=== PATIENT | male | born 1990 | race Caucasian/White ===

== ENCOUNTER 2016-08-11 06:13 | Day surgery (SDC) | payer OTHER ==
[2016-08-08 13:01] VITALS: BMI 23.2
[2016-08-11] VITALS (47 sets, daily range): BP systolic 118–146; BP diastolic 57–79; PULSE 62–96; RESP 9–20; Ht 188 cm; Wt 80.3 kg
[~2016-08-11] VITALS: Ht 188 cm; Wt 80.3 kg
[2016-08-11] MEDS ORDERED: FENTAnyl 50 MCG/ML VIAL ONE ×3 (06:49→07:39)
[2016-08-11] MEDS ORDERED: MIDAZOLAM 1 MG/ML 2 ML INJ ONE (06:49)
[2016-08-11] MEDS ORDERED: ROPIVACAINE 0.2% 20 ML VIAL ONE (06:49)
[2016-08-11] MEDS ORDERED: ROPIVACAINE 0.5 % 30 ML VIAL ONE ×2 (06:50→06:54)
[2016-08-11] MEDS ORDERED: POVIDONE IODINE 10% 28.4 GM OINT ONE (06:54)
[2016-08-11] MEDS ORDERED: POLYMYXIN/BACITRACIN 1L IRRIG ONE (06:54)
[2016-08-11] MEDS ORDERED: CEFAZOLIN 1 GM INJ ONE (07:00)
[2016-08-11] MEDS ORDERED: GLYCOPYRROLATE 1 MG INJ ONE (07:11)
[2016-08-11] MEDS ORDERED: NEOSTIGMINE 3 MG/3 ML SYRINGE ONE (07:11)
[2016-08-11] MEDS ORDERED: ROCURONIUM 50 MG INJ ONE (07:11)
[2016-08-11] MEDS ORDERED: PROPOFOL 100 ML ONE (07:11)
[2016-08-11] MEDS ORDERED: ONDANSETRON 4 MG INJ ONE (07:13)
[2016-08-11] MEDS ORDERED: DEXAMETHASONE 4 MG/ML 1 ML INJ ONE (07:13)
[2016-08-11] MEDS ORDERED: ALBU2.5V3 NEB (07:14)
[2016-08-11] MEDS ORDERED: IBUP-1542 PO (07:15)
--- NOTE | 2016-08-11 07:25 | HPN ---
Date/Time of Note Date/Time of Note DATE: 08/11/16 TIME: 07:25 Interval H&P Admission Note Pt. seen H&P reviewed: No system changes MARIELA PETERS MD Aug 11, 2016 07:25
[2016-08-11] MEDS ORDERED: DIPHENHYDRAMINE 50 MG INJ IV PRN (08:30)
[2016-08-11] MEDS ORDERED: EPHEDrine SULFATE 50 MG/5 ML SYG IV PRN (08:30)
[2016-08-11] MEDS ORDERED: KETOROLAC 30 MG INJ IV STA (11:48)
[2016-08-11] MEDS ORDERED: KETOROLAC 30 MG INJ ONE (11:48)
[2016-08-11] MEDS ORDERED: BISACODYL 10 MG SUPP PR PRN (12:00)
[2016-08-11] MEDS ORDERED: MEPERIDINE 25 MG INJ IV PRN (12:00)
[2016-08-11] MEDS ORDERED: FENTAnyl 50 MCG/ML VIAL IV PRN ×3 (12:00)
[2016-08-11] MEDS ORDERED: HYDROmorphONE (0.2 MG/ML) 10ML SYG IV PRN ×3 (12:00)
[2016-08-11] MEDS ORDERED: hydrALAzine 20 MG INJ IV PRN (12:00)
[2016-08-11] MEDS ORDERED: MIDAZOLAM 1 MG/ML 2 ML INJ IV PRN (12:00)
[2016-08-11] MEDS ORDERED: LABETALOL HCL 20MG INJ IV PRN (12:00)
[2016-08-11] MEDS ORDERED: TRIMETHOBENZAMIDE 100 MG/ML VIAL IM PRN (12:00)
[2016-08-11] MEDS ORDERED: CEFAZOLIN 1 GM INJ IV SCH (12:00)
[2016-08-11] MEDS ORDERED: ONDANSETRON 4 MG INJ IV PRN (12:00)
[2016-08-11] MEDS: HYDROmorphONE 0.2 MG/ML PCA IV SCH ×2 (12:08→19:44)
--- NOTE | 2016-08-11 13:08 | OPR ---
DATE OF OPERATION: 08/11/2016 PREOPERATIVE DIAGNOSES: 1. 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 2. Planovalgus hindfoot. POSTOPERATIVE DIAGNOSES: 1. 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 2. Planovalgus hindfoot. OPERATION PERFORMED: 1. Medial sliding calcaneal osteotomy with screw fixation. 2. Left posterior tibial tenosynovectomy. 3. Excision accessory navicular and prominent navicular. 4. Advancement posterior tibial tendon into the remaining navicular. 5. Use of fluoroscopy to verify position and alignment of the osteotomy, screws and suture anchor a nd excision of the naviculars. 6. Short-leg cast. SURGEON: Mariela Peters MD LAWN CARETAKER: Tim Mccracken MD ANESTHESIA: General with popliteal block. TOURNIQUET TIME: 1. 43 minutes. 2. 76 minutes. DESCRIPTION OF PROCEDURE: The patient taken to the operating room and placed in supine position. S atisfactory popliteal block was given. Satisfactory general anesthesia was administered. The patie nt was rolled in the right lateral decubitus position, secured with beanbag, kidney rest, axillary r oll, arms were carefully padded. As mentioned, 1 gram Ancef given intravenously. The left foot was prepped and draped in the usual manner. Tourniquet was inflated to 250 mmHg. A 45 degree oblique incision was made using the guide pin and the fluoroscope centered exactly where we wanted it over t he calcaneus. Dissection carried down to subcutaneous tissue. The osteotomy was then marked on the calcaneus under fluoroscopy. Using an oscillating saw, osteotomy was performed to the cortex and t he cortex were carefully released with an osteotome. Laminar liquor bridge operator helper was inserted. The heel was s hifted about 8 mm, fixated with a 4.5 and 7.3 AO cannulated screws. Repeatedly throughout the fixat ion process we checked in AP and lateral planes to make sure the position and alignment were appropr iate and they were. Final fluoroscopic views revealed excellent shifting medially of the osteotomy with the screws in place and well centered. Remaining bony prominence laterally was smoothed down w ith a power rasp. Wounds were irrigated with antibiotic solution. Tourniquet was released, bleeder s were coagulated. Subcutaneous tissue was closed with 3-0 undyed Vicryl and skin with 4-0 black ny shania. Sterile dressing was applied. All drapes were removed. The patient was taken off the beanbag and placed in supine position. The left leg was then reprepped and draped. All new instruments were used. Incision was made from just above the tip of the medial malleolus towards the navicular tuberosity which was quite prominen t and distal to the naviculocuneiform joint. Dissection carried down to subcutaneous tissue. Bleed ers were coagulated as encountered. Posterior tibial tendon sheath was opened. There was some teno synovitis which was debrided. There were no obvious tears in the posterior tibial tendon. The post erior tibial tendon and its attachments were peeled off the prominent navicular superiorly and refle cted inferiorly. Accessory navicular was excised sharply. Oscillating saw was used to remove the r emaining navicular prominence. Excellent resection was noted on the fluoroscope. Wounds were irrig ated with antibiotic solution. Super Revo triple loaded was inserted under direct vision with the fl uoroscope. Good position and alignment was noted with the suture anchor. Two sutures were left in place. One was removed a #2 HiFi. They were then weaved through the posterior tibial tendon on one side only, so that they would slide down to the post on the other side. With the foot plantar flex ed and inverted each suture was then tied. Excellent approximation to the navicular was done. Ana ining attachments to the navicular was secured with 0 FiberWire dorsally. The posterior tibial tendo n sheath was then closed with a running 2-0 PDS. Tourniquet was released, bleeders were coagulated, wound was irrigated with antibiotic solution. The wounds were closed with 3-0 undyed Vicryl and 4- 0 black nylon. Compression dressing applied as well as a saphenous nerve block with 0.5% ropivacain e. Compression dressing and short leg cast were applied with the foot maximally plantar flexed and inverted. At the end of the procedure sponge and needle count was correct. Patient tolerated proce dure well and the cast was split in the recovery room. CLINICAL THERAPIST ORTHOPEDIC SURGEON: During the procedure, an restaurant assistant orthopedic surgeon was used at my request. The restaurant assistant inserted the screws while I held the osteotomy reduced. The restaurant assistant also helped so the tendon while I held the foot in position inverted and plantar flexed without skilled o rthopedic surgeon assisting me, this could not have been done; therefore, should be compensated appr opriately. Dictated By: MARIELA PETERS MD RF/NTS Conf#: [id number] DID#: [id number] CC: TIM MCCRACKEN MD;*EndCC*
--- NOTE | 2016-08-11 13:11 | RADRPT ---
PROCEDURE: X-ray fluoroscopy guidance CLINICAL INDICATION: Pain TECHNIQUE: Fluoroscopic guidance was utilized for excision of accessory navicular, osteotomy. COMPARISON: None available FINDINGS: Fluoroscopic guidance was provided. 0.4 minutes of fluoroscopy time was utilized for the procedure. 6 images obtained during the procedure in progress. Cumulative dose is 0.820 mGy and 0.0242 mGym2 . IMPRESSION: 1. X-ray fluoroscopic guidance, as above. RPTAT: QQ .Roland Ray MD, MD Date Time Electronically viewed and signed by .Roland Ray MD, on 08/11/2016 13:11 .R/
[2016-08-11] MEDS ORDERED: DIPHENHYDRAMINE 25 MG CAP PO PRN (16:00)
[2016-08-11] MEDS: ONDANSETRON 4 MG INJ IV PRN (16:18)
[2016-08-11] MEDS: CEFAZOLIN 1 GM/50 ML (PMX) 50 ML IVPB SCH ×2 (16:19→23:30)
[2016-08-11] MEDS: SOD CHLORIDE 0.9% 1,000 ML IV SCH ×2 (16:42→22:40)
[2016-08-11] MEDS: SENNA/DOCUSATE NA (8.6MG/50MG) TAB PO SCH (21:00)
[2016-08-12 00:26] VITALS: BP 123/56; PULSE 90; RESP 18
[2016-08-12] MEDS: morphine 10 MG INJ IV PRN ×3 (04:23→15:27)
[2016-08-12] MEDS: HYDROmorphONE 0.2 MG/ML PCA IV SCH ×3 (05:58→22:55)
[2016-08-12] MEDS: OXYCODONE/ACETAMINOPHEN (5/325) TAB PO PRN ×4 (07:00→21:50)
--- NOTE | 2016-08-12 07:03 | PN ---
Date/Time of Note Date/Time of Note DATE: 08/12/16 TIME: 06:59 Assessment/Plan VTE Prophylaxis VTE Prophylaxis Intervention: ambulation, SCD's, other Lines/Catheters IV Catheter Type (from Nrsg): Peripheral IV Central line still needed: No Urinary Cath still in place: No Assessment/Plan Assessment/Plan A/P: POD#1 s/p LLE PTT advancement, calc osteotomy - Cont pain control. Encourage PO meds - PT today, NWB LLE - Xarelto, ambulation, SCD's for DVT ppx - no huertas - 24 hr abx - OK for discharge today if PT clears patient Subjective 24 Hr Interval Summary Free Text/Dictation Doing well, had pain at 4am when block wore off but meds are helping. Exam/Review of Systems Vital Signs Vitals Vital Signs Date Time Temp Pulse Resp B/P Pulse Ox O2 Delivery O2 Flow Rate FiO2 08/12/16 05:19 18 08/12/16 00:26 98.0 90 123/56 98 Room Air 08/11/16 14:51 2.0 Intake and Output 08/11/16 08/11/16 08/12/16 14:59 22:59 06:59 Intake Total 2100 ml 200 ml 2000 ml Output Total 25 ml 550 ml 1400 ml Balance 2075 ml -350 ml 600 ml Exam LLE: BCR toes. sens intact dorsal/plantar toes. DF/PF. cast intact, elevated on ramp. Medications Medications Current Medications Senna/Docusate Sodium (Senokot-S) 1 tab BID PO ; Start 08/11/16 at 21:00 Magnesium Hydroxide (Milk Of Mag) 30 ml HS PO ; Start 08/13/16 at 21:00 Bisacodyl 10 mg 10 mg DAILY PRN [place] CONSTIPATION; Start 08/11/16 at 12:00 Sodium Chloride (NS) 1,000 ml @ 100 mls/hr Q10H IV Last administered on 22:40; Admin Dose 100 MLS/HR; Start 08/11/16 at 11:42 Oxycodone/ Acetaminophen (Percocet (5/ 325)) 2 tab Q4H PRN PO PAIN; Start at 16:00 Morphine Sulfate (morphine) 5 mg Q4H PRN IV PAIN LEVEL 7-10 Last administered on 08/12/16 04:23; Admin Dose 5 MG; Start 08/11/16 at 16:00 Ondansetron HCl (Zofran Inj) 4 mg Q4H PRN IV NAUSEA AND/OR VOMITING Last administered on 08/11/16 16:18; Admin Dose 4 MG; Start 08/11/16 at 16:00 Diphenhydramine HCl (Benadryl) 25 mg Q4H PRN PO ITCHING; Start 08/11/16 at 16:00 Hydromorphone HCl 0.2 mg 0.2 mg Q4PCA IV Last administered on 08/12/16 05:58; Admin Dose 6 MG; Start 08/11/16 at 12:00 Cefazolin Sodium (Ancef 1 Gm/50 ml (Pmx)) 50 ml @ 100 mls/hr Q8H IVPB Last administered on 08/11/16 23:30; Admin Dose 100 MLS/HR; Start 08/11/16 at 16:00; Stop 08/13/16 at 08:29 MARIELA PETERS MD Aug 12, 2016 07:03
[2016-08-12] MEDS: SOD CHLORIDE 0.9% 1,000 ML IV SCH ×2 (07:42→17:42)
[2016-08-12] MEDS: CEFAZOLIN 1 GM/50 ML (PMX) 50 ML IVPB SCH ×2 (08:27→15:27)
[2016-08-12] MEDS: SENNA/DOCUSATE NA (8.6MG/50MG) TAB PO SCH ×2 (08:27→20:29)
--- NOTE | 2016-08-12 09:25 | RADRPT ---
PROCEDURE: X-ray fluoroscopy guidance CLINICAL INDICATION: Pain TECHNIQUE: Fluoroscopic guidance was utilized for left foot excision of accessory navicular, osteo keyana. COMPARISON: None available FINDINGS: Fluoroscopic guidance was provided. 0.1 minutes of fluoroscopy time was utilized for the procedure. 3 images obtained during the procedure in progress. Cumulative dose is 0.186 mGy and 0.22850 mGym 2. IMPRESSION: 1. X-ray fluoroscopic guidance, as above. RPTAT: QQ .Roland Ray MD, MD Date Time Electronically viewed and signed by .Roland Ray MD, on 08/12/2016 09:24 .R/
[2016-08-12] MEDS ORDERED: RIVAROXABAN 10 MG TABLET PO SCH (17:55)
[2016-08-12 20:16] VITALS: BP 128/68; RESP 20
[2016-08-13] MEDS: CEFAZOLIN 1 GM/50 ML (PMX) 50 ML IVPB SCH ×2 (00:08→07:42)
[2016-08-13] MEDS: SOD CHLORIDE 0.9% 1,000 ML IV SCH ×2 (03:42→12:58)
[2016-08-13] MEDS: HYDROmorphONE 0.2 MG/ML PCA IV SCH (04:03)
[2016-08-13] MEDS: OXYCODONE/ACETAMINOPHEN (5/325) TAB PO PRN ×3 (06:38→14:50)
[2016-08-13] MEDS ORDERED: morphine 10 MG INJ IV PRN (06:40)
--- NOTE | 2016-08-13 06:44 | PN ---
Date/Time of Note Date/Time of Note DATE: 08/13/16 TIME: 06:42 Assessment/Plan VTE Prophylaxis VTE Prophylaxis Intervention: ambulation, SCD's, other Lines/Catheters IV Catheter Type (from Nrsg): Peripheral IV Urinary Cath still in place: No Assessment/Plan Assessment/Plan POD#2 s/p L calc osteotomy, PTT advancement - cont pain control. encourage PO. d/c RANGER AIDE, q2h MS for breakthrough -DVT ppx - PT, NWB LLE - D/c home today - f/u as scheduled 1-[address] Jon Subjective 24 Hr Interval Summary Free Text/Dictation Doing better, pain controlled, slept o/n, worked well with PT Exam/Review of Systems Vital Signs Vitals Vital Signs Date Time Temp Pulse Resp B/P Pulse Ox O2 Delivery O2 Flow Rate FiO2 08/13/16 05:00 18 08/12/16 20:16 98.3 74 128/68 97 08/12/16 00:26 Room Air 08/11/16 14:51 2.0 Intake and Output 08/12/16 08/12/16 08/13/16 15:00 23:00 07:00 Intake Total 50 ml 1680 ml 1450 ml Output Total 1485 ml 2200 ml Balance 50 ml 195 ml -750 ml Exam LLE: cast intact. leg elevated. DF/PF toes, sens intact. BCR. Medications Medications Current Medications Senna/Docusate Sodium (Senokot-S) 1 tab BID PO Last administered on 08/12/16 20 :29; Admin Dose 1 TAB; Start 08/11/16 at 21:00 Magnesium Hydroxide (Milk Of Mag) 30 ml HS PO ; Start 08/13/16 at 21:00 Bisacodyl 10 mg 10 mg DAILY PRN [place] CONSTIPATION; Start 08/11/16 at 12:00 Sodium Chloride (NS) 1,000 ml @ 100 mls/hr Q10H IV Last administered on 07:42; Admin Dose 100 MLS/HR; Start 08/11/16 at 11:42 Oxycodone/ Acetaminophen (Percocet (5/ 325)) 2 tab Q4H PRN PO PAIN Last administered on 08/13/16 06:38; Admin Dose 2 TAB; Start 08/11/16 at 16:00 Ondansetron HCl (Zofran Inj) 4 mg Q4H PRN IV NAUSEA AND/OR VOMITING Last administered on 08/11/16 16:18; Admin Dose 4 MG; Start 08/11/16 at 16:00 Diphenhydramine HCl 25 mg 25 mg Q4H PRN PO ITCHING; Start 08/11/16 at 16:00 Cefazolin Sodium (Ancef 1 Gm/50 ml (Pmx)) 50 ml @ 100 mls/hr Q8H IVPB Last administered on 08/13/16 00:08; Admin Dose 100 MLS/HR; Start 08/11/16 at 16:00; Stop 08/13/16 at 08:29 Morphine Sulfate (morphine) 5 mg Q2HWA PRN IV PAIN LEVEL 7-10; Start 08/13/16 at 07:00; Status MARIELA FISHER MD Aug 13, 2016 06:44
[2016-08-13] MEDS: SENNA/DOCUSATE NA (8.6MG/50MG) TAB PO SCH (08:00)
[2016-08-13 08:21] VITALS: BP 142/66; RESP 20
[2016-08-13] MEDS: ONDANSETRON 4 MG INJ IV PRN (09:33)
[2016-08-13] MEDS: morphine 10 MG INJ IV PRN ×3 (09:33→14:49)
[2016-08-13] MEDS ORDERED: MAGNESIUM HYDROXIDE 30ML CUP PO SCH (21:00)
--- NOTE | 2016-08-13 22:09 | DS ---
DATE OF ADMISSION: 08/11/2016 DATE OF DISCHARGE: 08/13/2016 DISCHARGE DIAGNOSES: 1. Painful accessory navicular with posterior tibial tendon tenosynovitis. 2. Planovalgus left hindfoot. SURGERY: On 08/11: 1. Medial sliding calcaneal osteotomy, left hindfoot. 2. Left posterior tibial tenosynovectomy with excision of accessory navicular and advancement of th e posterior tibial tendon. HISTORY OF PRESENT ILLNESS: The patient is a 25-year-old male with long history of pain in the left posterior tibial tendon insertion and a prominent accessory navicular, admitted now for surgical co rrection. PAST MEDICAL HISTORY: See the history and physical record. PHYSICAL EXAMINATION: Normal except for the orthopedic exam, which revealed prominent and painful a ccessory navicular with some pain along the posterior tibial tendon and a planovalgus foot. LABORATORY: Normal. HOSPITAL COURSE: The patient taken to the operating room, underwent above-mentioned procedure. Pos toperatively, he was up ambulating the first postoperative day. He had a lot of pain, was able to b e discharged on the second postoperative day on pain medication. To be followed in the office in 1 week. Dictated By: MARIELA PETERS MD RF/NTS Conf#: [id number] DID#: [id number]
== END 2016-08-13 15:20 | disposition home or self-care (01) ==
LOC: SDS 06:13 → MS1 15:28 → SDS 08-13 15:20
PROVIDERS: ATTEND Orthopaedic Surgery
DX: Q66.89 Other specified congenital deformities of feet (principal); J45.909 Unspecified asthma, uncomplicated
CPT/HCPCS: 28238; 28300; 73620; 73650; C1713; J0690; J1100; J1170; J1885; J2250; J2270; J2405; J2795; J3010; J7030; J2710

== ENCOUNTER 2017-06-01 05:36 | Day surgery (SDC) | payer OTHER ==
[2017-06-01] VITALS (14 sets, daily range): BP systolic 103–135; BP diastolic 48–62; PULSE 64–93; RESP 12–20; Ht 188 cm; Wt 83.5 kg
[~2017-06-01] VITALS: Ht 188 cm; Wt 83.5 kg
[~2017-06-01 05:36] MED LIST: ALBU2.5V3 NEB; IBUP-1542 PO
[2017-06-01] MEDS ORDERED: DEXAMETHASONE 4 MG/ML 1 ML INJ ONE (06:19)
[2017-06-01] MEDS ORDERED: SUCCINYLCHOLINE CHLORIDE 100 MG/5 ML SYG IV ONE (06:19)
[2017-06-01] MEDS ORDERED: ONDANSETRON 4 MG INJ ONE (06:20)
[2017-06-01] MEDS ORDERED: SUGAMMADEX SODIUM 200 MG/2 ML VIAL IV ONE (06:20)
[2017-06-01] MEDS ORDERED: OXYCODONE/ACETAMINOPHEN (5/325) TAB PO PRN ×4 (06:30→07:00)
[2017-06-01] MEDS ORDERED: LABETALOL HCL 20MG INJ IV PRN (06:30)
[2017-06-01] MEDS ORDERED: morphine (1 MG/ML) 10ML SYRINGE IV PRN ×3 (06:30)
[2017-06-01] MEDS ORDERED: FENTAnyl 50 MCG/ML VIAL IV PRN ×2 (06:30)
[2017-06-01] MEDS ORDERED: ONDANSETRON 4 MG INJ IV PRN ×2 (06:30→07:00)
[2017-06-01] MEDS ORDERED: GLYCOPYRROLATE 1 MG INJ ONE (06:30)
[2017-06-01] MEDS ORDERED: ROCURONIUM 50 MG INJ ONE (06:30)
[2017-06-01] MEDS ORDERED: MIDAZOLAM 1 MG/ML 2 ML INJ ONE (06:30)
[2017-06-01] MEDS ORDERED: HYDROmorphONE (0.2 MG/ML) 10ML SYG IV PRN ×3 (06:30)
[2017-06-01] MEDS ORDERED: FENTAnyl 50 MCG/ML VIAL ONE (06:30)
[2017-06-01] MEDS ORDERED: LIDOCAINE 2% (SDV) 5 ML INJ ONE (06:30)
[2017-06-01] MEDS ORDERED: NEOSTIGMINE 3 MG/3 ML SYRINGE ONE (06:30)
[2017-06-01] MEDS ORDERED: DIPHENHYDRAMINE 50 MG INJ IV PRN (06:30)
[2017-06-01] MEDS ORDERED: MEPERIDINE 25 MG INJ IV PRN (06:30)
[2017-06-01] MEDS ORDERED: hydrALAzine 20 MG INJ IV PRN (06:30)
[2017-06-01] MEDS ORDERED: PROPOFOL 20 ML ONE (06:30)
[2017-06-01] MEDS ORDERED: MIDAZOLAM 1 MG/ML 2 ML INJ IV PRN (06:30)
[2017-06-01] MEDS ORDERED: EPHEDrine SULFATE 50 MG/5 ML SYG IV PRN (06:30)
[2017-06-01] MEDS ORDERED: ATROPINE 1 MG/10 ML SYRINGE IV PRN (06:30)
[2017-06-01] MEDS ORDERED: SOD CHLORIDE 0.9% 1,000 ML IV SCH (06:57)
--- NOTE | 2017-06-01 06:57 | HPN ---
Date/Time of Note Date/Time of Note DATE: 06/01/17 TIME: 06:56 Interval H&P Admission Note Pt. seen H&P reviewed: No system changes MARIELA PETRES MD Jun 01, 2017 06:57
[2017-06-01] MEDS ORDERED: morphine 2 MG INJ IV PRN (07:00)
[2017-06-01] MEDS ORDERED: CEFAZOLIN 1 GM INJ ONE (08:03)
[2017-06-01] MEDS ORDERED: POLYMYXIN/BACITRACIN 1L IRRIG ONE (08:05)
[2017-06-01] MEDS ORDERED: POVIDONE IODINE 10% 28.4 GM OINT ONE (08:05)
[2017-06-01] MEDS ORDERED: ROPIVACAINE 0.5 % 30 ML VIAL ONE (08:05)
--- NOTE | 2017-06-01 09:34 | OPPN ---
Date/Time of Note Date/Time of Note DATE: 06/01/17 TIME: 09:32 Operative Report Preoperative Diagnosis Retained painful deep hardware, left calcaneus Postoperative Diagnosis same Operation/Procedure Performed Removal of deep painful hardware, left calcaneus Surgeon see signature line culture media laboratory assistant MD Melissa Anesthesia: general Estimated blood loss: minimal Transfusion Required none Specimen hardware Grafts/Implants none Complications none MARIELA PETERS MD Jun 01, 2017 09:34
--- NOTE | 2017-06-01 11:18 | OPR ---
DATE OF OPERATION: 06/01/2017 PREOPERATIVE DIAGNOSES: 1. Status post calcaneal osteotomy and excision of posterior tibial tendon accessory navicular and advancement. 2. Painful hardware. POSTOPERATIVE DIAGNOSES 1. Status post calcaneal osteotomy and excision of posterior tibial tendon accessory navicular and advancement. 2. Painful hardware. NAME OF THE OPERATION: 1. Removal of 4.5 and 7.3 mm AO cannulated screws, left calcaneus. 2. Posterior splint. 3. Use of fluoroscopy to find the screws and verify excision SURGEON: Mariela Jon MD WATER RESTORATION TECHNICIAN: Venkat Torres. ANESTHESIA: General. TOURNIQUET TIME: 30 minutes. DESCRIPTION OF PROCEDURE: The patient taken to the operating room and placed in supine position. S atisfactory endotracheal anesthesia was administered, 2 grams Ancef given intravenously. The patien t was rolled in the right lateral decubitus position, secured with an axillary roll and beanbag, kid ronald rest. All areas were carefully padded. The left leg was prepped and draped in the usual manner . The fluoroscope was brought in. We identified where the screw head was for the 7.3 AO cannulated screw. Incision was made over the screw head. Dissection carried down through the subcutaneous ti ssue. We cleaned up bone off the screw head, put the guide pin down the screw and removed the screw after checking under fluoroscope. We then checked in AP and lateral planes the 4.5 screw which was higher with more medially, we extended the incision more proximally, the screw was covered by bone, it was curetted clear. All bone was removed. The guide pin was inserted and the screw was removed . Final fluoroscopic views showed good position and alignment of the heel calcaneal osteotomy with the hardware removed. The wound was irrigated with antibiotic solution. Tourniquet was released, b leeders were coagulated, wounds irrigated with antibiotic solution again and then closed with 3-0 un dyed Vicryl and 4-0 black nylon. The subcutaneous tissue was infiltrated with 0.5% ropivacaine. Co mpression dressing was applied as well as posterior splint in neutral position. At the end of proce dure, sponge and needle count was correct. The patient tolerated the procedure well. Dictated By: MARIELA LUND/ELENO Conf#: [id number] [facility]#: [id number]
--- NOTE | 2017-06-01 13:01 | RADRPT ---
PROCEDURE: Intraoperative imaging of the left calcaneus with fluoroscopy. CLINICAL INDICATION: Left calcaneal pain. Hardware removal. Intraoperative. TECHNIQUE: Images of the left calcaneus were obtained in the operating room with an image intensif ier. No radiologist was in attendance. Fluoroscopy time is 0.2 minutes and 3 images were obtained. COMPARISON: Intraoperative imaging of the left calcaneus dated 08/11/2016. FINDINGS: Images demonstrate removal of the 2 cannulated screws from the left calcaneus. There is a healed ost eotomy of the posterior left calcaneus. IMPRESSION: 1. Intraoperative imaging of the left calcaneus. RPTAT: QQ .Hung Al MD, Date Time Electronically viewed and signed by .Hung Al MD, on 06/01/2017 13:01 .R/
--- NOTE | 2017-06-01 16:48 | OPR ---
DATE OF OPERATION: 06/01/2017 ADDENDUM MARBLE POLISHER HAND ORTHOPEDIC SURGEON: During the procedure, an studio assistant orthopedic surgeon was used at my request. The studio assistant helped with retraction, helped with removing the screw as I applied traction across the screw and helped to chip away the bone surrounding the screw. Without a skilled assista nt this could not have been done and therefore, should be compensated appropriately. Dictated By: MARIELA PETERS MD RF/NTS Conf#: [id number] DID#: [id number]
== END 2017-06-01 11:15 | disposition home or self-care (01) ==
LOC: SDS 05:36
PROVIDERS: ATTEND Orthopaedic Surgery
DX: T84.84XA Pain due to internal orthopedic prosthetic devices, implants and grafts, initial encounter (principal); Y79.8 Miscellaneous orthopedic devices associated with adverse incidents, not elsewhere classified; Y92.89 Other specified places as the place of occurrence of the external cause
CPT/HCPCS: 20680; 73650; J0690; J1100; J2250; J2405; J2710; J2795; J3010